=== PATIENT | male | born 1995 | race Caucasian/White ===

== ENCOUNTER 2021-08-10 05:26 | Emergency (ER) | payer OTHER, SELFPAY ==
--- NOTE | ~2021-08-10 | XR_ITS ---
EXAMINATION: XR CHEST CLINICAL INFORMATION: Shortness of breath. COMPARISON: None TECHNIQUE: Frontal view of the chest was obtained. FINDINGS: No significant abnormality is noted involving the heart, lungs, mediastinum, bony thorax or soft tissues. XR/XR chest 1V IMPRESSION: No acute cardiopulmonary process.
[2021-08-10 06:06] VITALS: BP 113/71; PULSE 96; RESP 20; TEMP 37.1; O2SAT 94; BMI 31.9
--- NOTE | 2021-08-10 06:39 | PC.NURSE ---
Covid and strep obtained and sent.
--- NOTE | 2021-08-10 06:48 | PC.NURSE ---
Xray at bed side.
[2021-08-10 06:54] LABS: IDNOW Serial# 9DD0AD1C; Strep A Nucleic Acid Negative (Negative)
[2021-08-10 07:26] LABS: Influenza A PCR NEGATIVE (Negative); Influenza B PCR NEGATIVE (Negative); Resp Syncy Virus RNA Qual PCR NEGATIVE (Negative); SARS COV2 PCR INHOUSE NEGATIVE (Negative)
[2021-08-10 08:11] VITALS: BP 126/69; PULSE 92; RESP 18; TEMP 37; O2SAT 95
--- NOTE | 2021-08-10 08:20 | PC.NURSE ---
Pt speaking in full sentences. Skin pwd. slightl wheeze in lungs, good air movement. requesting updraft. continues to have diarrhea. sml amounts per patient. ambulatory.
[2021-08-10] MEDS: Albuterol/Iprat 2.5/0.5MG 3 ML AMPUL.NEB INHALE (08:34)
[2021-08-10 08:36] VITALS: PULSE 87; O2SAT 97
--- NOTE | 2021-08-10 08:40 | ED.SOB ---
HPI - SOB/Dyspnea General Chief Complaint: Dyspnea Stated Complaint: Covid symptoms Time Seen by Provider: 08/10/21 08:25 History of Present Illness HPI Narrative: 26-year-old male presents today with coughing congestion upper respiratory symptoms has been ongoing for few days. Patient already had his coronavirus vaccine x2. History of asthma never been admitted. No history of being intubated. Patient from home. Positive generalized malaise. Positive coughing. Positive for clearish sputum. No environmental triggers. No change in environment. Related Data Previous Rx's Medication Instructions Recorded azithromycin 250 mg tablet See Rx Instructions .ROUTE 08/10/21 .COMPLEX #6 tab prednisone 20 mg tablet 40 mg PO DAILY #10 tab 08/10/21 Allergies Allergy/AdvReac Type Severity Reaction Status Date / Time Seasonal Allergies Allergy Runny Nose Verified 08/10/21 06:15 shrimp Allergy Anaphylaxis Verified 08/10/21 06:15 Review of Systems Review of Systems: Positive coughing upper respiratory symptoms Positive generalized malaise All systems reviewed otherwise negative FORMERLY [facility], [facility] Past Medical History Attestation statement: The following information was validated with the patient. Social History Social History Alcohol intake: current Patient Tobacco Use Status: Never used Tobacco Use of substances other than those prescribed or required for medical reasons: Yes Substance Use Type: Marijuana Advance Directives: No Physical Exam Vital Signs: Vital Signs: Last Vital Signs Temp 98.6 F 08/10/21 08:11 Pulse 87 08/10/21 08:36 Resp 18 08/10/21 08:11 BP 126/69 08/10/21 08:11 Pulse Ox 95 08/10/21 08:11 Body Mass Index 31.9 Appearance: Alert. Oriented X3. No acute distress. Eyes: Pupils equal, round and reactive to light. ENT: Pharynx normal. Neck: Normal inspection. Neck supple. No lymph nodes noted. No crepitus CVS: Normal heart rate and rhythm. Pulses normal. Normal S1 and S2 Respiratory: No respiratory distress. Minimal wheezing noted bilaterally. Abdomen: Soft and nontender. No rigidity. No distention. good BS x4 Skin: Skin warm and dry. Normal skin color. Normal skin turgor. Extremities: No lower extremity edema. Neurovascular intact to all extremities. No Lacerations. No Rash Neuro: Oriented X 3. No motor deficit. No sensory deficit. Moving all extermities. No slurred speech MDM - SOB/Dyspnea MDM Narrative Medical decision making narrative: O2 sats 98% on room air. Patient is well-appearing. COVID test was negative. Positive coughing upper respiratory symptoms will give a Z-Devin. Given steroid for few days. Repeat exam after nebulized treatment patient's lungs are clear. In stable condition with discharge Medical Records Attestation: I reviewed the patient's medical records. Lab Data Attestation: I reviewed the patient's lab results. Labs: Lab Results 08/10/21 08/10/21 Range/Units 06:19 06:19 Influenza Type A (PCR) NEGATIVE (Negative) Influenza Type B (PCR) NEGATIVE (Negative) RSV RNA Qual (PCR) NEGATIVE (Negative) SARS-CoV-2 RNA (RT-PCR) NEGATIVE (Negative) S. pyogenes GrpA JAN Negative (Negative) Discharge Plan Discharge Clinical Impression: Asthma with exacerbation Patient Disposition: Home, Self-Care Instructions: Asthma (ED) Prescriptions: New azithromycin 250 mg tablet See Rx Instructions .ROUTE .COMPLEX Qty: 6 RF: 0 prednisone 20 mg tablet 40 mg PO DAILY Qty: 10 RF: 0 Referrals: Physician,Unknown J [Primary Care Provider] - 2 days
[2021-08-10] MEDS: predniSONE 20 MG TABLET 40 MG PO (09:01)
== END 2021-08-10 09:17 | disposition home or self-care (01) ==
PROVIDERS: Emergency Provider Emergency Medicine Emergency Medical Services
DX: J45.901 Unspecified asthma with (acute) exacerbation (principal); R53.81 Other malaise; Z20.822 Contact with and (suspected) exposure to COVID-19
CPT/HCPCS: 0241U; 36415; 71045; 87651; 94640; 99284